=== PATIENT | female | born 1945 | race Caucasian/White ===

== ENCOUNTER 2017-10-16 10:55 | Emergency (ER) | payer SELFPAY ==
[~2017-10-16] VITALS: Ht 160 cm; Wt 60.7 kg
[2017-10-16 10:57] VITALS: Ht 160 cm; Wt 60.7 kg
--- NOTE | 2017-10-16 11:16 | ERD ---
ER Documentation Chief Complaint Chief Complaint ZARAGOZA x6mths, nausea last night, missed BP meds dose today HPI 71-year-old female history of hypertension and depression presents to the ED complaining of a mild, gradual onset, generalized headache since yesterday. Denies visual changes, focal weakness or numbness. No shortness of breath, chest pain or palpitations. Denies abdominal pain, nausea, vomiting, diarrhea or constipation. No relieving or exacerbating factors. No fevers or chills. ROS All systems reviewed and are negative except as per history of present illness. Medications Home Meds Reported Medications Aspirin (Low Dose Aspirin) 81 Mg Tablet.dr, 81 MG PO DAILY, #30 TAB 10/16/17 Amlodipine Besylate* (Norvasc*) 5 Mg Tablet, 5 MG PO DAILY, TAB 10/16/17 Discontinued Reported Medications [None] No Conflict Check 12/27/09 Allergies Allergies: Coded Allergies: No Known Allergies (Verified Allergy, Mild, 10/16/17) PMhx/Soc Reviewed in chart. As per HPI. History of Surgery: No Anesthesia Reaction: No Hx Neurological Disorder: Yes (Headaches) Hx Respiratory Disorders: No Hx Cardiac Disorders: Yes (Hypertension) Hx Psychiatric Problems: No Hx Miscellaneous Medical Probl: Yes (Depression) Hx Alcohol Use: No Hx Substance Use: No Hx Tobacco Use: No FmHx No stroke, cancer or subarachnoid hemorrhage. Physical Exam Vitals Vital Signs Date Time Temp Pulse Resp B/P Pulse Ox O2 Delivery O2 Flow Rate FiO2 10/16/17 13:01 70 18 169/80 Room Air 10/16/17 10:57 97.1 66 18 203/111 100 Physical Exam Const: Alert, anxious but in no acute distress Head: Atraumatic Eyes: Normal Conjunctiva. Pupils equal react to light, extraocular movements are intact. No tenderness over the temporal arteries. ENT: Normal External Ears, Nose and Mouth. No tenderness to percussion over the sinuses. Neck: Full range of motion. Right is 2+ bilaterally without bruits. Resp: Clear to auscultation bilaterally Cardio: Regular rate and rhythm, no murmurs Abd: Soft, non tender, non distended. Normal bowel sounds Skin: No petechiae or rashes Back: No midline or flank tenderness Ext: No cyanosis, or edema Neur: Awake and alert. Cranial 2 through 12 are grossly intact. Motor and sensory equal bilaterally. Normal gait. No focal deficit observed. Psych: Anxious. Cooperative. Result Diagram: 10/16/17 1132 10/16/17 1132 Results 24 hrs Laboratory Tests Test 10/16/17 11:32 White Blood Count 5.810^3/ul Red Blood Count 4.5410^6/ul Hemoglobin 12.8g/dl Hematocrit 39.4% Mean Corpuscular Volume 86.8fl Mean Corpuscular Hemoglobin 28.2pg Mean Corpuscular Hemoglobin Concent 32.5g/dl Red Cell Distribution Width 14.1% Platelet Count 00903^3/UL Mean Platelet Volume 9.2fl Neutrophils % 45.6% Lymphocytes % 42.7% Monocytes % 8.2% Eosinophils % 2.8% Basophils % 0.5% Nucleated Red Blood Cells % 0.0/100WBC Neutrophils # 2.610^3/ul Lymphocytes # 2.510^3/ul Monocytes # 0.510^3/ul Eosinophils # 0.210^3/ul Basophils # 0.010^3/ul Nucleated Red Blood Cells # 0.010^3/ul Prothrombin Time 12.2Sec Prothrombin Time Ratio 1.0 INR International Normalized Ratio 0.91 Activated Partial Thromboplast Time 27.6Sec Urine Color STRAW Urine Clarity CLEAR Urine pH 7.0 Urine Specific [place] 1.008 Urine Ketones NEGATIVEmg/dL Urine Nitrite NEGATIVEmg/dL Urine Bilirubin NEGATIVEmg/dL Urine Urobilinogen NEGATIVEmg/dL Urine Leukocyte Esterase NEGATIVELeu/ul Urine Microscopic RBC 2/HPF Urine Microscopic WBC 0/HPF Urine Hemoglobin 1+mg/dL Urine Glucose NEGATIVEmg/dL Urine Total Protein NEGATIVEmg/dl Sodium Level 143mmol/L Potassium Level 4.0mmol/L Chloride Level 102mmol/L Carbon Dioxide Level 31mmol/L Anion Gap 14 Blood Urea Nitrogen 12mg/dl Creatinine 0.60mg/dl Glucose Level 89mg/dl Calcium Level 9.5mg/dl Total Bilirubin 0.4mg/dl Direct Bilirubin 0.00mg/dl Indirect Bilirubin 0.4mg/dl Aspartate Amino Transf (AST/SGOT) 35IU/L Alanine Aminotransferase (ALT/SGPT) 41IU/L Alkaline Phosphatase 117IU/L Troponin I < 0.012ng/ml Total Protein 7.6g/dl Albumin 4.4g/dl Globulin 3.20g/dl Albumin/Globulin Ratio 1.37 Current Medications Medications (Trade) Dose Ordered Sig/Maximo Route PRN Reason Start Time Stop Time Status Last Admin Dose Admin Ketorolac Tromethamine (Toradol) 15 mg ONCE STAT IV 10/16/17 12:44 10/16/17 12:45 DC 10/16/17 12:47 EKG: TIME: 11:38. Sinus rhythm. Ventricular rate 64. Normal [place] and QRS. Low voltage. No acute ST segment elevation or depression. No ectopy. EP Interpretation: Borderline EKG. IMAGING: PROCEDURE: XR Chest. CLINICAL INDICATION: Headache. Dyspnea TECHNIQUE: Single frontal chest x-ray. COMPARISON: None. FINDINGS: The lungs are clear of acute infiltrates, edema, effusions, or masses.. The cardiomediastinal silhouette is unremarkable. The osseous structures are intact. IMPRESSION: No acute cardiopulmonary disease. RPTAT: QQ .Saul Jordan MD, MD Date Time Electronically viewed and signed by .Saul Jordan MD, MD on 10/16/2017 11:42 .L/ PROCEDURE: CT Brain without contrast. CLINICAL INDICATION: Headaches. TECHNIQUE: A CT of the brain was performed on a GE 64-slice CT scanner utilizing axial imaging from the skull base through the vertex without intravenous contrast. Multiplanar reformatted images were made. One or more the following dose reduction techniques were utilized: Automated exposure control, adjustment of the mA/ or kV according to patient's size, or use of iterative reconstruction technique. DICOM images are available for review. The CTDIvol is 45.0 mGy and the DLP is 630.2 mGycm. COMPARISON: CT 12/07/2009 FINDINGS: There is no intracranial hemorrhage, mass effect, or midline shift. No extra- axial fluid collection is seen. Mild atrophy is identified with compensatory ventricular and sulcal enlargement. Mild decreased attenuation is seen in the periventricular and deep white matter, compatible with microvascular ischemic disease. The harkins white matter differentiation is well preserved with no acute infarct detected. The osseous structures and visualized paranasal sinuses are grossly unremarkable. IMPRESSION: 1. No evidence of acute intracranial pathology. 2. Mild diffuse atrophy, slightly more pronounced since the prior study. 3. There is mild microvascular ischemic disease in the periventricular and deep white matter. This has progressed since the prior study. RPTAT: HJAH .Zandra Pineda MD, MD Date Time Electronically viewed and signed by .Zandra Pineda MD, on 10/16/2017 12:12 .H/ Procedures/MDM DOCUMENTS REVIEWED: ED nurse, prior records REEXAMINATION/REEVALUATION: Time: 13:30. Doing well. Asymptomatic. MEDICAL DECISION MAKIN-year-old female history of hypertension and depression presents to the ED complaining of a mild, gradual onset, generalized headache since yesterday. Poorly controlled hypertension improved after patient took her own medication. CT of the brain performed to evaluate for stroke, bleed, mass and hydrocephalus reveals chronic changes but is otherwise unremarkable. Mild headache relieved with ketorolac. Headache not consistent with subarachnoid hemorrhage, encephalitis or meningitis hence in the presence of a negative CT of the brain lumbar puncture are not indicated. Uncontrolled hypertension without evidence of hepatic encephalopathy or hypertensive emergency will need urgent outpatient follow-up. Stable for discharge of precautionary instructions and outpatient follow-up as counseled. Counseled patient and family regarding diagnostic workup, diagnosis and need for followup. Understands to return to ED if symptoms recur, worsen or any other concerns. Departure Diagnosis: Primary Impression: Headache Headache type: unspecified Headache chronicity pattern: unspecified pattern Intractability: not intractable Qualified Code: R51 - Nonintractable headache, unspecified chronicity pattern, unspecified headache type Additional Impressions: Poorly-controlled hypertension Anxiety Condition: Stable ÁNGEL MOLINA MD Oct 16, 2017 11:16
[2017-10-16] MEDS ORDERED: ASPI-664 PO (11:30)
[2017-10-16] MEDS ORDERED: AMLO5TAB4 PO (11:30)
--- NOTE | 2017-10-16 11:42 | RADRPT ---
PROCEDURE: XR Chest. CLINICAL INDICATION: Headache. Dyspnea TECHNIQUE: Single frontal chest x-ray. COMPARISON: None. FINDINGS: The lungs are clear of acute infiltrates, edema, effusions, or masses.. The cardiomediastinal silho uette is unremarkable. The osseous structures are intact. IMPRESSION: No acute cardiopulmonary disease. RPTAT: QQ .Saul Jordan MD, MD Date Time Electronically viewed and signed by .Saul Jordan MD, MD on 10/16/2017 11:42 .L/
[2017-10-16 11:49] LABS: BASOPHILS % 0.5 % (0.0-2.0); EOSINOPHILS # 0.2 10^3/ul (0.0-0.5); EOSINOPHILS % 2.8 % (0.0-7.0); HEMATOCRIT 39.4 % (37.0-47.0); HEMOGLOBIN 12.8 g/dl (12.0-16.0); LYMPHOCYTES # 2.5 10^3/ul (0.8-2.9); LYMPHOCYTES % 42.7 % (15.0-51.0); MEAN CORPUSCULAR HEMOGLOBIN 28.2 pg (29.0-33.0); MEAN CORPUSCULAR HGB CONC 32.5 g/dl (32.0-37.0); MEAN CORPUSCULAR VOLUME 86.8 fl (82.0-101.0); MEAN PLATELET VOLUME 9.2 fl (7.4-10.4); MONOCYTE # 0.5 10^3/ul (0.3-0.9); MONOCYTES % 8.2 % (0.0-11.0); NEUTROPHIL # 2.6 10^3/ul (1.6-7.5); NEUTROPHILS % 45.6 % (39.0-77.0); PLATELET COUNT 373 10^3/UL (140-415); RED BLOOD COUNT 4.54 10^6/ul (4.20-5.40); RED CELL DISTRIBUTION WIDTH 14.1 % (11.5-14.5); WHITE BLOOD COUNT 5.8 10^3/ul (4.8-10.8)
[2017-10-16 12:10] LABS: ADD UMIC YES; UR ASCORBIC ACID NEGATIVE (NEGATIVE); UR BILIRUBIN (Dip) NEGATIVE (NEGATIVE); UR BLOOD (Dip) 1+ mg/dL (NEGATIVE); UR CLARITY CLEAR (CLEAR); UR COLOR STRAW (YELLOW); UR GLUCOSE (Dip) NEGATIVE (NEGATIVE); UR KETONES (Dip) NEGATIVE (NEGATIVE); UR LEUKOCYTE ESTERASE (Dip) NEGATIVE Leu/ul (NEGATIVE); UR NITRITE (Dip) NEGATIVE (NEGATIVE); UR RBC 2 /HPF (0-5); UR SPECIFIC GRAVITY (Dip) 1.008 (1.003-1.030); UR TOTAL PROTEIN (Dip) NEGATIVE (NEGATIVE); UR UROBILINOGEN (Dip) NEGATIVE (NEGATIVE)
--- NOTE | 2017-10-16 12:12 | RADRPT ---
PROCEDURE: CT Brain without contrast. CLINICAL INDICATION: Headaches. TECHNIQUE: A CT of the brain was performed on a GE 64-slice CT scanner utilizing axial imaging fro m the skull base through the vertex without intravenous contrast. Multiplanar reformatted images wer e made. One or more the following dose reduction techniques were utilized: Automated exposure contr ol, adjustment of the mA/ or kV according to patient's size, or use of iterative reconstruction tech nique. DICOM images are available for review. The CTDIvol is 45.0 mGy and the DLP is 630.2 mGycm. COMPARISON: CT 12/07/2009 FINDINGS: There is no intracranial hemorrhage, mass effect, or midline shift. No extra-axial fluid collection is seen. Mild atrophy is identified with compensatory ventricular and sulcal enlargement. Mild de creased attenuation is seen in the periventricular and deep white matter, compatible with microvascu lar ischemic disease. The harkins white matter differentiation is well preserved with no acute infarct detected. The osseous structures and visualized paranasal sinuses are grossly unremarkable. IMPRESSION: 1. No evidence of acute intracranial pathology. 2. Mild diffuse atrophy, slightly more pronounced since the prior study. 3. There is mild microvascular ischemic disease in the periventricular and deep white matter. This has progressed since the prior study. RPTAT: HJAH .Zandra Pineda MD, MD Date Time Electronically viewed and signed by .Zandra Pineda MD, MD on 10/16/2017 12:12 .H/
[2017-10-16 12:13] LABS: ALANINE AMINOTRANSFERASE 41 IU/L (13-69); ALBUMIN 4.4 g/dl (3.3-4.9); ALBUMIN/GLOBULIN RATIO 1.37; ALKALINE PHOSPHATASE 117 IU/L (42-121); ANION GAP 14 (8-16); ASPARTATE AMINO TRANSFERASE 35 IU/L (15-46); BILIRUBIN,INDIRECT 0.4 mg/dl (0-1.1); BILIRUBIN,TOTAL 0.4 mg/dl (0.2-1.3); BLOOD UREA NITROGEN 12 mg/dl (7-20); CALCIUM 9.5 mg/dl (8.4-10.2); CARBON DIOXIDE 31 mmol/L (21-31); CHLORIDE 102 mmol/L (97-110); GLUCOSE 89 mg/dl (70-220); SODIUM 143 mmol/L (135-144); TOTAL PROTEIN 7.6 g/dl (6.1-8.1)
[2017-10-16 12:24] LABS: TROPONIN-I < 0.012 ng/ml (0.00-0.12)
[2017-10-16] MEDS ORDERED: KETOROLAC 15 MG INJ IV STA (12:44)
[2017-10-16 13:01] VITALS: BP 169/80; PULSE 70; RESP 18
[2017-10-16 13:01] LABS: INR 0.91; PROTIME 12.2 Sec (12.2-14.2)
[2017-10-16 13:02] LABS: PARTIAL THROMBOPLASTIN TIME 27.6 Sec (25.0-35.0)
== END 2017-10-16 14:03 | disposition home or self-care (01) ==
LOC: E/R 10:55
DX: R51 Headache (principal); I10 Essential (primary) hypertension; F41.9 Anxiety disorder, unspecified; R06.02 Shortness of breath
CPT/HCPCS: 36415; 70450; 71010; 80053; 81001; 84484; 85025; 85610; 85730; 93005; 96374; 99285; J1885

== ENCOUNTER 2017-11-02 20:03 | Emergency (ER) | payer SELFPAY ==
[~2017-11-02] VITALS: Ht 152.4 cm; Wt 61.9 kg
[~2017-11-02 20:03] MED LIST: AMLO5TAB4 PO; ASPI-664 PO
[2017-11-02 20:10] VITALS: Ht 152.4 cm; Wt 61.9 kg
[2017-11-02 22:31] LABS: URINE BLOOD (Dip) POC Trace-intact (NEGATIVE)
--- NOTE | 2017-11-02 22:41 | ERD ---
ER Documentation Chief Complaint Chief Complaint epi abd pain x 2 days, HPI The patient is a 71-year-old female, presenting to the ER because of epigastric abdominal pain intermittently for 1-2 days, worse with eating. She vomited with bloody streak, denies hematemesis, hematochezia, denies fever, chills, cough, neck pain, chest pain, dyspnea, dysuria, diarrhea, constipation. She does not smoke nor drink Past medical history: Hypertension, depression Past surgical history: None ROS All systems reviewed and are negative except as per history of present illness. Medications Home Meds Active Scripts Ondansetron (Ondansetron Odt) 4 Mg Tab.rapdis, 4 MG PO Q6H Y for NAUSEA AND/OR VOMITING, #10 TAB Prov:ZAYRA GOLDSMITH MD 11/03/17 Sulfamethoxazole/Trimethoprim* (Bactrim Ds* Tablet) 1 Each Tablet, 1 TAB PO BID , #14 TAB Prov:ZAYRA GOLDSMITH MD 11/03/17 Reported Medications Aspirin (Low Dose Aspirin) 81 Mg Tablet.dr, 81 MG PO DAILY, #30 TAB 10/16/17 Amlodipine Besylate* (Norvasc*) 5 Mg Tablet, 5 MG PO DAILY, TAB 10/16/17 Allergies Allergies: Coded Allergies: No Known Allergies (Verified Allergy, Mild, 11/02/17) PMhx/Soc History of Surgery: No Anesthesia Reaction: No Hx Neurological Disorder: Yes (Headaches) Hx Respiratory Disorders: No Hx Cardiac Disorders: Yes (Hypertension) Hx Psychiatric Problems: No Hx Miscellaneous Medical Probl: Yes (Depression) Hx Alcohol Use: No Hx Substance Use: No Hx Tobacco Use: No Physical Exam Vitals Vital Signs Date Time Temp Pulse Resp B/P Pulse Ox O2 Delivery O2 Flow Rate FiO2 11/03/17 01:30 68 18 116/89 100 Room Air 11/02/17 22:45 97.8 99 18 112/86 97 Room Air 11/02/17 20:10 97.8 55 20 144/98 98 Physical Exam Const: No acute distress. Head: Atraumatic. Eyes: Normal Conjunctiva. ENT: Normal External Ears, Nose and Mouth. Neck: Full range of motion. No meningismus. Resp: Clear to auscultation bilaterally. Cardio: Regular rate and rhythm. Abd: Soft, non distended, normal bowel sounds, mild epigastric discomfort, no right lower quadrant, right upper quadrant, CVA tenderness Skin: No petechiae or rashes. Back: No midline or flank tenderness. Ext: No cyanosis, or edema. Neur: Awake and alert. No focal deficit Psych: Normal Mood and Affect. Result Diagram: 11/02/17231911/02/172319 Results 24 hrs Laboratory Tests Test 11/02/17 22:31 11/02/17 23:20 Bedside Urine pH (LAB) 7.0 Bedside Urine Protein (LAB) Trace Bedside Urine Glucose (UA) Negative Bedside Urine Ketones (LAB) Negative Bedside Urine Blood Trace-intact Bedside Urine Nitrite (LAB) Negative Bedside Urine Leukocyte Esterase (L 2+ White Blood Count 6.310^3/ul Red Blood Count 4.5010^6/ul Hemoglobin 12.9g/dl Hematocrit 38.7% Mean Corpuscular Volume 86.0fl Mean Corpuscular Hemoglobin 28.7pg Mean Corpuscular Hemoglobin Concent 33.3g/dl Red Cell Distribution Width 14.6% Platelet Count 81991^3/UL Mean Platelet Volume 10.5fl Neutrophils % 44.1% Lymphocytes % 46.4% Monocytes % 6.5% Eosinophils % 2.2% Basophils % 0.5% Nucleated Red Blood Cells % 0.0/100WBC Neutrophils # 2.810^3/ul Lymphocytes # 2.910^3/ul Monocytes # 0.410^3/ul Eosinophils # 0.110^3/ul Basophils # 0.010^3/ul Nucleated Red Blood Cells # 0.010^3/ul Sodium Level 142mmol/L Potassium Level 4.1mmol/L Chloride Level 104mmol/L Carbon Dioxide Level 27mmol/L Anion Gap 15 Blood Urea Nitrogen 19mg/dl Creatinine 0.70mg/dl Glucose Level 90mg/dl Calcium Level 9.7mg/dl Total Bilirubin 0.4mg/dl Direct Bilirubin 0.00mg/dl Indirect Bilirubin 0.4mg/dl Aspartate Amino Transf (AST/SGOT) 45IU/L Alanine Aminotransferase (ALT/SGPT) 51IU/L Alkaline Phosphatase 100IU/L Total Protein 7.7g/dl Albumin 4.2g/dl Globulin 3.50g/dl Albumin/Globulin Ratio 1.20 Lipase 64U/L Current Medications Medications (Trade) Dose Ordered Sig/Maximo Route PRN Reason Start Time Stop Time Status Last Admin Dose Admin Ondansetron HCl (Zofran Inj) 4 mg ONCE STAT IV 11/03/17 01:09 11/03/17 01:10 Cancel Ondansetron HCl (Zofran Odt) 4 mg STK-MED ONCE ODT 11/03/17 01:29 11/03/17 01:30 DC Ondansetron HCl (Zofran Odt) 4 mg ONCE STAT ODT 11/03/17 01:35 11/03/17 01:36 DC 11/03/17 01:38 Procedures/[place] [id number] Radiology Main Line: [phone] DIAGNOSTIC IMAGING REPORT Patient: FLOR[place] ROBERTS : 1945 Age: 71 Sex: F MR #: [id number] DOS: 11/02/17 2250 Ordering MD: ZAYRA GOLDSMITH MD Location: E/R Room/Bed: PROCEDURE: XR Chest. CLINICAL INDICATION: Abdominal pain. TECHNIQUE: Single frontal view of the chest was obtained COMPARISON: None FINDINGS: The heart and mediastinum are within normal limits. The lungs are clear. There is no pleural effusion or pneumothorax. Degenerative changes of the spine and shoulder joints are present. IMPRESSION: 1. No acute cardiopulmonary disease. RPTAT:AAJJ Physician Lion Date Time Electronically viewed and signed by Physician Lion on 11/02/2017 23:40 QL/ CC: ZAYRA GOLDSMITH MD MEDICAL MAKING DECISION: The patient is a 71-year-old female, presenting with acute cystitis. She was treated with Zofran ODT for nausea with good response The differential diagnoses considered include but are not limited to cholelithiasis, cholecystitis, cystitis, pancreatitis, hepatitis, gastritis, peptic ulcer disease, gastric ulcer, appendicitis, diverticulitis, cholangitis, choledocholithiasis, partial small bowel obstruction. Departure Diagnosis: Primary Impression: UTI (urinary tract infection) Condition: Good Comments She was discharged with Bactrim DS and Zofran ODT I discussed the findings with the patient. I advised the patient to follow-up with the primary physician in about 1-2 days, sooner if needed and return if any concern. Disclaimer: Inadvertent spelling and grammatical errors are likely due to EHR/ dictation software use and do not reflect on the overall quality of patient care. Also, please note that the electronic time recorded on this note does not necessarily reflect the actual time of the patient encounter. ZAYRA GOLDSMITH MD Nov 02, 2017 22:41
[2017-11-02 22:45] VITALS: TEMP 97.8
--- NOTE | 2017-11-02 23:40 | RADRPT ---
PROCEDURE: XR Chest. CLINICAL INDICATION: Abdominal pain. TECHNIQUE: Single frontal view of the chest was obtained COMPARISON: None FINDINGS: The heart and mediastinum are within normal limits. The lungs are clear. There is no pleural effusion or pneumothorax. Degenerative changes of the spine and shoulder joints are present. IMPRESSION: 1. No acute cardiopulmonary disease. RPTAT:AAJJ Physician iLon Date Time Electronically viewed and signed by America Vazquez Physician on 11/02/2017 23:40 QL/
[2017-11-02 23:47] LABS: BASOPHILS % 0.5 % (0.0-2.0); EOSINOPHILS # 0.1 10^3/ul (0.0-0.5); EOSINOPHILS % 2.2 % (0.0-7.0); HEMATOCRIT 38.7 % (37.0-47.0); HEMOGLOBIN 12.9 g/dl (12.0-16.0); LYMPHOCYTES # 2.9 10^3/ul (0.8-2.9); LYMPHOCYTES % 46.4 % (15.0-51.0); MEAN CORPUSCULAR HEMOGLOBIN 28.7 pg (29.0-33.0); MEAN CORPUSCULAR HGB CONC 33.3 g/dl (32.0-37.0); MEAN PLATELET VOLUME 10.5 fl (7.4-10.4); MONOCYTE # 0.4 10^3/ul (0.3-0.9); MONOCYTES % 6.5 % (0.0-11.0); NEUTROPHIL # 2.8 10^3/ul (1.6-7.5); NEUTROPHILS % 44.1 % (39.0-77.0); PLATELET COUNT 324 10^3/UL (140-415); RED CELL DISTRIBUTION WIDTH 14.6 % (11.5-14.5); WHITE BLOOD COUNT 6.3 10^3/ul (4.8-10.8)
[2017-11-03 00:24] LABS: ALBUMIN 4.2 g/dl (3.3-4.9); ALBUMIN/GLOBULIN RATIO 1.2; BILIRUBIN,INDIRECT 0.4 mg/dl (0-1.1); BILIRUBIN,TOTAL 0.4 mg/dl (0.2-1.3); CALCIUM 9.7 mg/dl (8.4-10.2); CREATININE 0.7 mg/dl (0.44-1.00); POTASSIUM 4.1 mmol/L (3.5-5.1); TOTAL PROTEIN 7.7 g/dl (6.1-8.1)
[2017-11-03] MEDS ORDERED: SULF1TAB31 PO (01:07)
[2017-11-03] MEDS ORDERED: ONDA4TAB14 PO (01:08)
[2017-11-03] MEDS ORDERED: ONDANSETRON 4 MG INJ IV STA (01:09)
[2017-11-03] MEDS ORDERED: ONDANSETRON (ODT) 4 MG TAB ODT ONE (01:29)
[2017-11-03 01:30] VITALS: BP 116/89; PULSE 68; RESP 18
[2017-11-03] MEDS ORDERED: ONDANSETRON (ODT) 4 MG TAB ODT STA (01:35)
== END 2017-11-03 01:39 | disposition home or self-care (01) ==
LOC: E/R 20:03
DX: N39.0 Urinary tract infection, site not specified (principal); I10 Essential (primary) hypertension; Z79.82 Long term (current) use of aspirin
CPT/HCPCS: 36415; 71010; 80053; 81003; 83690; 85025; J2405